=== PATIENT | female | born 1970 | race Caucasian/White ===

== ENCOUNTER 2020-12-27 08:22 | Inpatient (IN) | payer OTHER ==
[~2020-12-27] VITALS: Ht 165.1 cm; Wt 102.2 kg
[2020-12-27 08:26] VITALS: BP 151/60
[2020-12-27 08:48] LABS: BASO # 0.1 10*3/uL (0.0-0.1); BASO % 0.5 % (0.0-1.0); EOS # 0.2 10*3/uL (0.0-0.4); HEMATOCRIT 45.3 % (37.0-47.0); LYMPH # 2.5 10*3/uL (1.3-4.4); MEAN CORPUSCULAR HGB 29.1 pg (27.0-31.0); MEAN CORPUSCULAR HGB CONC 32.7 g/dl (33.0-37.0); MEAN PLATELET VOLUME 10.1 fl (9.6-12.3); MONO # 0.7 10*3/uL (0.1-1.0); MONO % 5.7 % (3.0-9.0); NEUT # 8.3 10*3/uL (2.3-7.9); NEUT % 70.4 % (47.0-73.0); PLATELET COUNT AUTOMATED 484 10*3/uL (130-400); RED BLOOD COUNT 5.09 10*6/uL (4.10-5.10); RED CELL DISTRI WIDTH 14.2 % (0-14.5); WHITE BLOOD COUNT 11.8 10*3/uL (4.8-10.8)
[2020-12-27 09:04] LABS: ALBUMIN 3.8 gm/dl (3.1-4.5); ALKALINE PHOSPHATASE 83 U/L (45-117); BUN 19 mg/dl (7-24); CHLORIDE 104 mmol/L (98-107); LIPASE 188 U/L (73-393); SGOT/AST 15 IU/L (3-35); SGPT/ALT 34 U/L (12-78); SODIUM 138 mmol/L (136-145); TOTAL PROTEIN 7.7 gm/dL (6.4-8.2)
[2020-12-27 09:08] LABS: TROPONIN I < 0.015 ng/ml (<0.045)
[2020-12-27 10:30] VITALS: BP 126/69
[2020-12-27 11:01] VITALS: BP 142/78
[2020-12-27 13:05] VITALS: BP 132/71
[2020-12-27 13:25] VITALS: BP 145/67
[2020-12-27] MEDS ORDERED: FLONASE ALLERG9.9 ML NAS (14:26)
[2020-12-27] MEDS ORDERED: LIPITOR10 MG PO (14:26)
[2020-12-27 20:00] VITALS: BP 105/47
[2020-12-28] VITALS: BP 129/56
[2020-12-28 06:19] LABS: BASO # 0.1 10*3/uL (0.0-0.1); BASO % 0.5 % (0.0-1.0); EOS # 0.3 10*3/uL (0.0-0.4); EOS % 2.3 % (1.0-4.0); HEMATOCRIT 44.2 % (37.0-47.0); LYMPH # 2.6 10*3/uL (1.3-4.4); LYMPH % 20.3 % (27.0-41.0); MEAN CELL VOLUME 89.5 fl (81.0-99.0); MEAN CORPUSCULAR HGB 28.3 pg (27.0-31.0); MEAN CORPUSCULAR HGB CONC 31.7 g/dl (33.0-37.0); MEAN PLATELET VOLUME 10.6 fl (9.6-12.3); MONO # 0.7 10*3/uL (0.1-1.0); MONO % 5.7 % (3.0-9.0); NEUT # 8.9 10*3/uL (2.3-7.9); NEUT % 70.6 % (47.0-73.0); PLATELET COUNT AUTOMATED 453 10*3/uL (130-400); RED BLOOD COUNT 4.94 10*6/uL (4.10-5.10); RED CELL DISTRI WIDTH 14.5 % (0-14.5); WHITE BLOOD COUNT 12.6 10*3/uL (4.8-10.8)
[2020-12-28 06:33] LABS: CHLORIDE 107 mmol/L (98-107); POTASSIUM 4.1 mmol/L (3.5-5.1); SODIUM 136 mmol/L (136-145)
[2020-12-28 06:42] LABS: ALBUMIN 3.2 gm/dl (3.1-4.5); ALKALINE PHOSPHATASE 75 U/L (45-117); BUN 17 mg/dl (7-24); CHOLESTEROL 191 mg/dL (<200); CREATININE 1.06 mg/dL (0.55-1.02); FREE T4 1.03 ng/dl (0.76-1.46); LDL CHOLESTEROL 112 mg/dL (9-159); SGOT/AST 13 IU/L (3-35); SGPT/ALT 31 U/L (12-78); TOTAL PROTEIN 7.1 gm/dL (6.4-8.2); TRIGLYCERIDES 223 mg/dl (<150)
[2020-12-28 08:00] VITALS: BP 105/57
[2020-12-28 08:07] LABS: VITAMIN D, 25-HYDROXY 28.2 ng/mL (30-100)
[2020-12-28] MEDS ORDERED: ASPIRIN CHEWABL81 MG PO (11:17)
== END 2020-12-28 11:33 | disposition home or self-care (01) | DRG 69 ==
LOC: ED 08:22 → EDHOLD 11:39 → 4E 11:39 → EDHOLD 11:47 → 4E 13:02
PROVIDERS: Emergency Medicine; Internal Medicine; ADMIT Internal Medicine; ATTEND Internal Medicine
DX: G45.9 Transient cerebral ischemic attack, unspecified (principal); R65.10 Systemic inflammatory response syndrome (SIRS) of non-infectious origin without acute organ dysfunction; J33.9 Nasal polyp, unspecified; R03.0 Elevated blood-pressure reading, without diagnosis of hypertension; R00.2 Palpitations; D47.3 Essential (hemorrhagic) thrombocythemia; R73.9 Hyperglycemia, unspecified; E83.41 Hypermagnesemia; E78.2 Mixed hyperlipidemia; Z98.51 Tubal ligation status; Z83.3 Family history of diabetes mellitus; Z82.49 Family history of ischemic heart disease and other diseases of the circulatory system; Z91.040 Latex allergy status; Z79.899 Other long term (current) drug therapy